=== PATIENT | female | born 1980 | race Caucasian/White ===

== ENCOUNTER 2018-10-02 19:56 | Emergency (ER) | payer MEDICAID ==
[2018-10-02] MEDS: ACETAMINOPHEN 325 MG TAB PO (23:41)
== END 2018-10-03 01:44 | disposition home or self-care (01) ==
LOC: FTE 10-03 01:44
DX: J06.9 Acute upper respiratory infection, unspecified (principal)
CPT/HCPCS: 87400; 99283

== ENCOUNTER 2019-03-07 16:05 | Inpatient (IN) | payer MEDICAID ==
[2019-03-07] MEDS: LACTATED RINGER'S 1,000 ML IV ×2 (18:02→20:42)
[2019-03-07] MEDS: TERBUTALINE 1 MG/ML INJ SC ×3 (18:13→23:51)
[2019-03-07 18:55] LABS: ADD UMIC YES; UR ASCORBIC ACID NEGATIVE (NEGATIVE); UR BACTERIA FEW /HPF (NONE SEEN); UR BILIRUBIN (Dip) NEGATIVE (NEGATIVE); UR BLOOD (Dip) NEGATIVE (NEGATIVE); UR CALCIUM OXALATE CRYSTAL MANY /HPF (NONE SEEN); UR CLARITY SLIGHTLY CLOUDY (CLEAR); UR COLOR YELLOW (YELLOW); UR GLUCOSE (Dip) NEGATIVE (NEGATIVE); UR KETONES (Dip) 1+ mg/dL (NEGATIVE); UR LEUKOCYTE ESTERASE (Dip) TRACE Leu/ul (NEGATIVE); UR NITRITE (Dip) NEGATIVE (NEGATIVE); UR RBC 0 /HPF (0-5); UR SPECIFIC GRAVITY (Dip) 1.016 (1.003-1.030); UR SQUAMOUS EPITHELIAL CELL MODERATE /HPF (FEW); UR TOTAL PROTEIN (Dip) NEGATIVE (NEGATIVE); UR UROBILINOGEN (Dip) NEGATIVE (NEGATIVE); UR WBC 2 /HPF (0-5)
[2019-03-08 00:50] LABS: ADD MAN DIFF? NO
[2019-03-08 00:53] LABS: BASOPHILS % 0.3 % (0.0-2.0); EOSINOPHILS % 0.3 % (0.0-7.0); HEMOGLOBIN 11.4 g/dl (12.0-16.0); LYMPHOCYTES # 1.5 10^3/ul (0.8-2.9); LYMPHOCYTES % 16.6 % (15.0-51.0); MEAN CORPUSCULAR HEMOGLOBIN 28.1 pg (29.0-33.0); MEAN CORPUSCULAR HGB CONC 32.6 g/dl (32.0-37.0); MEAN CORPUSCULAR VOLUME 86.4 fl (82.0-101.0); MEAN PLATELET VOLUME 10.7 fl (7.4-10.4); MONOCYTE # 0.6 10^3/ul (0.3-0.9); MONOCYTES % 6.6 % (0.0-11.0); NEUTROPHIL # 6.8 10^3/ul (1.6-7.5); NEUTROPHILS % 75.1 % (39.0-77.0); PLATELET COUNT 201 10^3/UL (140-415); RED BLOOD COUNT 4.05 10^6/ul (4.20-5.40); RED CELL DISTRIBUTION WIDTH 14.3 % (11.5-14.5)
[2019-03-08 00:53] LABS: WHITE BLOOD COUNT 9.1 10^3/ul (4.8-10.8)
[2019-03-08 01:14] LABS: INR 1.05; PARTIAL THROMBOPLASTIN TIME 25.6 Sec (23.0-35.0); PROTIME 13.8 Sec (11.9-14.9); PT RATIO 1.1
[2019-03-08] MEDS: BETAMET NA PHOS/AC(6 MG/ML) 2 ML INJ SYG IM ×2 (01:29→13:41)
[2019-03-08 01:43] LABS: HEPATITIS B SURFACE ANTIGEN NEGATIVE (NEGATIVE)
[2019-03-08] MEDS: LACTATED RINGER'S 1,000 ML IV ×4 (03:27→17:54)
[2019-03-08 15:20] LABS: RAPID PLASMA REAGIN NONREACTIVE (NR)
[2019-03-08] MEDS: ONDANSETRON 4 MG INJ IV ×2 (18:04→21:44)
[2019-03-08] MEDS: CITRIC ACID/NA CITRATE 30 ML CUP PO (18:04)
[2019-03-08] MEDS ORDERED: OXYTOCIN 30 UNITS/LR 500 ML BAG IV (18:44)
[2019-03-08] MEDS ORDERED: OXYTOCIN 10 UNIT INJ (18:44)
[2019-03-08] MEDS ORDERED: morphine SULFATE/PF (10 MG/10 ML) INJ (18:44)
[2019-03-08] MEDS ORDERED: PHENYLephrine (100 MCG/ML) 10ML SYG (18:44)
[2019-03-08] MEDS ORDERED: KETOROLAC 30 MG INJ (18:59)
[2019-03-08] MEDS ORDERED: DEXAMETHASONE 4 MG/ML 1 ML INJ (18:59)
[2019-03-08] MEDS ORDERED: METOCLOPRAMIDE 10 MG INJ (18:59)
[2019-03-08] MEDS ORDERED: ONDANSETRON 4 MG INJ (18:59)
[2019-03-08] MEDS: CEFAZOLIN 2 GM/50 ML (PMX) 50 ML IVPB (19:05)
[2019-03-08] MEDS ORDERED: ACETAMINOPHEN 500 MG TAB PO (19:30)
[2019-03-08] MEDS ORDERED: NALOXONE (0.4 MG/ML) INJ IV (19:30)
[2019-03-08] MEDS ORDERED: DIPHENHYDRAMINE 50 MG INJ IV ×2 (19:30→23:30)
[2019-03-08] MEDS ORDERED: NALBUPHINE HCL (10 MG/1 ML) INJ IV (19:30)
[2019-03-08] MEDS ORDERED: HYDROCODONE/APAP (5/325) TAB PO (19:30)
[2019-03-08] MEDS ORDERED: HYDROmorphONE 0.5 MG/0.5 ML SYG IV ×2 (19:30)
[2019-03-08] MEDS ORDERED: morphine 2 MG INJ IV ×2 (19:30)
[2019-03-08] MEDS: OXYTOCIN 30 UNITS/LR 500 ML IV (21:20)
[2019-03-08] MEDS ORDERED: MISOPROSTOL 200 MCG TAB PR ×2 (23:30)
[2019-03-08] MEDS ORDERED: OXYTOCIN 30 UNITS/LR 500 ML IV ×2 (23:30)
[2019-03-08] MEDS ORDERED: METHYLERGONOVINE 0.2 MG INJ IM ×2 (23:30)
[2019-03-08] MEDS ORDERED: CARBOPROST 250 MCG INJ IM ×2 (23:30)
[2019-03-08] MEDS ORDERED: ZOLPIDEM 5 MG TAB PO (23:30)
[2019-03-08] MEDS ORDERED: LANOLIN HPA 1 PKT TOP (23:30)
[2019-03-08] MEDS ORDERED: OXYCODONE/ACETAMINOPHEN (5/325) TAB PO ×2 (23:30)
[2019-03-09] MEDS: LACTATED RINGER'S 1,000 ML IV (00:20)
[2019-03-09] MEDS: IBUPROFEN 600 MG TAB PO ×5 (06:00→23:38)
[2019-03-09] MEDS: ONDANSETRON 4 MG INJ IV (07:13)
[2019-03-09 07:22] LABS: ADD MAN DIFF? NO
[2019-03-09 07:29] LABS: WHITE BLOOD COUNT 19.1 10^3/ul (4.8-10.8)
[2019-03-09 07:29] LABS: BASOPHILS % 0.1 % (0.0-2.0); HEMATOCRIT 32.2 % (37.0-47.0); HEMOGLOBIN 10.4 g/dl (12.0-16.0); LYMPHOCYTES # 0.9 10^3/ul (0.8-2.9); LYMPHOCYTES % 4.6 % (15.0-51.0); MEAN CORPUSCULAR HEMOGLOBIN 28.2 pg (29.0-33.0); MEAN CORPUSCULAR HGB CONC 32.3 g/dl (32.0-37.0); MEAN CORPUSCULAR VOLUME 87.3 fl (82.0-101.0); MEAN PLATELET VOLUME 11.1 fl (7.4-10.4); MONOCYTE # 1.3 10^3/ul (0.3-0.9); MONOCYTES % 6.7 % (0.0-11.0); NEUTROPHIL # 16.7 10^3/ul (1.6-7.5); NEUTROPHILS % 87.3 % (39.0-77.0); PLATELET COUNT 234 10^3/UL (140-415); RED BLOOD COUNT 3.69 10^6/ul (4.20-5.40); RED CELL DISTRIBUTION WIDTH 14.3 % (11.5-14.5)
[2019-03-09] MEDS: SENNA/DOCUSATE NA (8.6MG/50MG) TAB PO ×2 (09:54→21:17)
[2019-03-09] MEDS: KETOROLAC 30 MG INJ IV (11:27)
[2019-03-10] MEDS: IBUPROFEN 600 MG TAB PO ×2 (05:36→12:23)
[2019-03-10] MEDS: SENNA/DOCUSATE NA (8.6MG/50MG) TAB PO (09:25)
[2019-03-11] MEDS ORDERED: DIPHTH/TET/ACEL PERTUSS (ADULT) 0.5 ML VIAL IM* (09:00)
== END 2019-03-10 16:46 | disposition home or self-care (01) | DRG 785 ==
LOC: OBT 16:05 → L-D 16:08 → OBT 23:29 → L-D 23:29 → PP1 03-08 22:58
PROC: 10D00Z1 Extraction of Products of Conception, Low, Open Approach (ICD-10-PCS; principal; 2019-03-08)
PROC: 0UT70ZZ Resection of Bilateral Fallopian Tubes, Open Approach (ICD-10-PCS; 2019-03-08)
DX: O60.13X0 Preterm labor second trimester with preterm delivery third trimester, not applicable or unspecified (principal); O99.62 Diseases of the digestive system complicating childbirth; K66.0 Peritoneal adhesions (postprocedural) (postinfection); Z3A.36 36 weeks gestation of pregnancy; Z37.0 Single live birth; Z30.2 Encounter for sterilization
CPT/HCPCS: 36415; 76818; 81001; 85025; 85610; 85730; 86592; 86850; 86900; 86901; 87340; 88302; 96360; 96361; 96372; 99464

== ENCOUNTER 2019-03-28 19:21 | Emergency (ER) | payer MEDICAID | END 2019-03-28 19:45 | disposition home or self-care (01) | LOC: E/R 19:21 → FTE 19:45 | DX: O90.2 Hematoma of obstetric wound (principal); B96.89 Other specified bacterial agents as the cause of diseases classified elsewhere | CPT/HCPCS: 99283; Z7502 ==